=== PATIENT | female | born 1985 | race Caucasian/White ===

== ENCOUNTER 2018-07-24 17:57 | Emergency (ER) | payer BC ==
[2018-07-24 18:09] VITALS: BP 134/85; PULSE 101; RESP 20; TEMP 98.3
--- NOTE | 2018-07-24 19:36 | CT ---
EXAMINATION TYPE: CT brain wo con DATE OF EXAM: 07/24/2018 COMPARISON: None. HISTORY: headache and dizziness 4 days post head injury CT DLP: 1070.4 mGycm. Automated Exposure Control for Dose Reduction was Utilized. TECHNIQUE: CT scan of the head is performed without contrast. FINDINGS: There is no acute intracranial hemorrhage, mass effect, or midline shift identified. The ventricles and sulci are within normal limits in size. Daley-white matter differentiation is maintain ed. The globes are intact and the visualized sinuses are clear. The calvarium is intact. No suspiciou s opacification mastoid air cells. IMPRESSION: No acute intracranial hemorrhage, mass effect, or midline shift is seen.
--- NOTE | 2018-07-24 20:23 | ED ---
General Adult HPI - General Chief complaint: Head Injury Stated complaint: Head injury Time Seen by Provider: 07/24/18 18:12 Source: patient Mode of arrival: ambulatory Limitations: no limitations - History of Present Illness Initial comments: Patient is a 32-year-old female presenting to emergency Department with a headache. Patient states that a few days ago she was wrestling with her sister when they bumped heads. Patient states that the trauma occurred on the left lateral supraorbital region. Patient reports slight blurry vision, lightheadedn ess and mild dizziness at the time of incident. Currently the patient states the pain has not improved and is exacerbated with palpation. Patient states that after the incident she "felt weird" but denies any amnesia. Patient also reports that yesterday she was cleaning her ears when she noticed red contents on the Q-tip from the left ear. Patient denies any otalgia or difficulty hearing. Patient states that she has not taken any medication for his symptoms. Patient currently denies any blurry vision, lightheadedness, dizziness, numbness or tingling, nausea or vomiting ,muscle weakness. - Related Data Home Medications Medication Instructions Recorded Confirmed No Known Home Medications 07/24/18 07/24/18 Allergies Allergy/AdvReac Type Severity Reaction Status Date / Time No Known Allergies Allergy Verified 07/24/18 19:09 Review of Systems ROS Statement: Those systems with pertinent positive or pertinent negative responses have been documented in the HPI. ROS Other: All systems not noted in ROS Statement are negative. Past Medical History Past Medical History: No Reported History History of Any Multi-Drug Resistant Organisms: None Reported Past Surgical History: Appendectomy, Section, Tubal Ligation Past Psychological History: No Psychological Hx Reported Smoking Status: Current every day smoker Past Alcohol Use History: None Reported Past Drug Use History: Marijuana General Exam Limitations: no limitations General appearance: alert, in no apparent distress Head exam: Present: other Expanded Head exam: Present: contusion (Left lateral supraorbital region.). Absent: laceration, abrasion, raccoon eyes, flanagan's sign, general tenderness Eye exam: Present: normal appearance, PERRL, EOMI. Absent: scleral icterus, conjunctival injection Pupils: Present: normal accommodation ENT exam: Present: normal exam, TM's normal bilaterally (No hemotympanum) Neck exam: Present: normal inspection, full ROM. Absent: tenderness, lymphadenopathy Respiratory exam: Present: normal lung sounds bilaterally Cardiovascular Exam: Present: regular rate, normal rhythm, normal heart sounds Extremities exam: Present: normal inspection Neurological exam: Present: alert, oriented X3 Psychiatric exam: Present: normal affect, normal mood Skin exam: Present: warm, normal color Course Vital Signs 07/24/18 18:06 Temperature 98.3 F Pulse Rate 101 H Respiratory 20 Rate Blood Pressure 134/85 O2 Sat by Pulse 98 Oximetry Medical Decision Making - Medical Decision Making Patient is a 32-year-old female presenting to emergency Department with headac he. Based on physical examination unsuspecting contusion to her left lateral supraorbital region. CT was obtained and returned unremarkable. I suspect this patient had a mild concussion and she is experiencing progressive symptoms. Patient advised to alternate between ibuprofen and Tylenol for pain control. Patient advised to follow up with primary care. Patient advised to return to emergency department if symptoms worsen. Case discussed with physician. Disposition Clinical Impression: Head injury due to trauma Disposition: HOME SELF-CARE Condition: Stable Additional Instructions: Please take Tylenol or ibuprofen for pain control. Please follow with primary care. Please return to emergency department if symptoms worsen. Is patient prescribed a controlled substance at d/c from ED?: No Referrals: Rodrigo Solomon DO [Primary Care Provider] - 1-2 days Time of Disposition: 20:32
== END 2018-07-24 20:45 | disposition home or self-care (01) ==
LOC: EC 17:57
DX: S00.83XA Contusion of other part of head, initial encounter (principal); F17.200 Nicotine dependence, unspecified, uncomplicated; W50.0XXA Accidental hit or strike by another person, initial encounter; Y93.72 Activity, wrestling; Y92.89 Other specified places as the place of occurrence of the external cause
CPT/HCPCS: 70450; 99283

== ENCOUNTER 2020-01-30 12:12 | Emergency (ER) | payer BC ==
[2020-01-30 12:22] VITALS: RESP 18
[2020-01-30] MEDS ORDERED: KETOROLAC 15 MG/ML 1 ML VIAL IVP STA ×2 (12:40→14:44)
[2020-01-30] MEDS ORDERED: SODIUM CHLORIDE 0.9% 1,000 ML IV STA (12:40)
[2020-01-30] MEDS ORDERED: ACETAMINOPHEN TAB 500 MG TAB PO STA (12:41)
--- NOTE | 2020-01-30 13:00 | ED ---
General Adult HPI - General Chief complaint: Abdominal Pain Stated complaint: ABD pain Time Seen by Provider: 01/30/20 12:23 Source: patient, EMS, RN notes reviewed Mode of arrival: EMS Limitations: no limitations - History of Present Illness Initial comments: 34-year-old female with a past medical history of tubal ligation, appendectomy presents to the emergency room for a chief complaint of abdominal pain. Patient reports she woke up this morning with suprapubic discomfort. States that it gradually worsened and it radiates to the right back. Patient reports it does not seem to be getting better. She denies fevers. Denies dysuria, vaginal di scharge, cough congestion sore throat.. Denies nausea vomiting diarrhea.Patient has no other complaints at this time including shortness of breath, chest pain, nausea or vomiting, headache, or visual changes. - Related Data Previous Rx's Medication Instructions Recorded HYDROcodone/APAP 5-325MG [[place] 1 tab PO Q6HR PRN #10 tab 01/30/20 5-325] Ibuprofen [Motrin] 600 mg PO Q6HR PRN #20 tab 01/30/20 Ondansetron [Zofran ODT] 4 mg PO Q8HR PRN #15 tab 01/30/20 Tamsulosin [Flomax] 0.4 mg PO DAILY #14 cap 01/30/20 Allergies Allergy/AdvReac Type Severity Reaction Status Date / Time No Known Allergies Allergy Verified 01/30/20 14:41 Review of Systems ROS Statement: Those systems with pertinent positive or pertinent negative responses have been documented in the HPI. ROS Other: All systems not noted in ROS Statement are negative. Past Medical History Past Medical History: No Reported History History of Any Multi-Drug Resistant Organisms: None Reported Past Surgical History: Appendectomy, Section, Tubal Ligation Past Psychological History: No Psychological Hx Reported Past Alcohol Use History: None Reported Past Drug Use History: Marijuana General Exam Limitations: no limitations General appearance: alert, in no apparent distress Head exam: Present: atraumatic, normocephalic, normal inspection Eye exam: Present: normal appearance, PERRL, EOMI. Absent: scleral icterus, conjunctival injection, periorbital swelling ENT exam: Present: normal exam, mucous membranes moist Neck exam: Present: normal inspection, full ROM. Absent: tenderness, meningismus, lymphadenopathy Respiratory exam: Present: normal lung sounds bilaterally. Absent: respiratory distress, wheezes, rales, rhonchi, stridor Cardiovascular Exam: Present: regular rate, normal rhythm, normal heart sounds. Absent: systolic murmur, diastolic murmur, rubs, gallop, clicks GI/Abdominal exam: Present: soft, tenderness (Suprapubic tenderness noted), normal bowel sounds. Absent: distended, guarding, rebound, rigid External exam: Present: normal external exam, other (Malika CUMMINGS present on exam). Absent: erythema, swelling, lesions, lacerations, ecchymosis Speculum exam: Present: normal speculum exam. Absent: erythema, vaginal discharge, cervical discharge, vaginal bleeding, foreign body By manual exam: Present: normal by manual exam. Absent: cervical motion tendern ess, adnexal tenderness, adnexal mass, uterine enlargement, uterine tenderness Neurological exam: Present: alert Course Vital Signs 01/30/20 01/30/20 01/30/20 12:14 13:35 15:17 Temperature 100.0 F H 98.6 F Pulse Rate 61 52 L 61 Respiratory 18 18 18 Rate Blood Pressure 125/81 135/84 131/78 O2 Sat by Pulse 99 96 99 Oximetry Medical Decision Making - Medical Decision Making Vitals are stable. CBC CMP unremarkable. Urinalysis does show 10 red blood cells with 18 white blood cells. Negative nitrite.CT shows a distal right ureteral stone measuring 5.3 mm approximate 2 cm from the UVJ resulting in moderate right-sided hydronephrosis. Patient was given several pain medications. She is feeling much better at this time. Patient had a temperatur e of 100.0 however has not had any other fevers. This is not a true fever today. She has no dysuria or signs of urinary tract infection. Symptoms are consistent with stone. Urine will be cultured. She will follow-up with her doctor in one to 2 days. She'll return here for any worsening symptoms. - Lab Data Result diagrams: 01/30/20 12:52 01/30/20 12:52 Lab Results 01/30/20 01/30/20 01/30/20 Range/Units 12:52 12:52 12:52 WBC 12.9 H (3.8-10.6) k/uL RBC 4.21 (3.80-5.40) m/uL Hgb 14.0 (11.4-16.0) gm/dL Hct 39.1 (34.0-46.0) % MCV 92.8 (80.0-100.0) fL MCH 33.3 (25.0-35.0) pg MCHC 35.8 (31.0-37.0) g/dL RDW 13.0 (11.5-15.5) % Plt Count 312 (150-450) k/uL MPV 7.2 Neutrophils % 81 % Lymphocytes % 15 % Monocytes % 2 % Eosinophils % 1 % Basophils % 0 % Neutrophils # 10.5 H (1.3-7.7) k/uL Lymphocytes # 1.9 (1.0-4.8) k/uL Monocytes # 0.2 (0-1.0) k/uL Eosinophils # 0.2 (0-0.7) k/uL Basophils # 0.0 (0-0.2) k/uL Sodium (137-145) mmol/L Potassium (3.5-5.1) mmol/L Chloride (98-107) mmol/L Carbon Dioxide (22-30) mmol/L Anion Gap mmol/L BUN (7-17) mg/dL Creatinine (0.52-1.04) mg/dL Est GFR (CKD-EPI)AfAm (>60 ml/min/1.73 sqM) Est GFR (CKD-EPI)NonAf (>60 ml/min/1.73 sqM) Glucose (74-99) mg/dL Calcium (8.4-10.2) mg/dL Total Bilirubin (0.2-1.3) mg/dL AST (14-36) U/L ALT (4-34) U/L Alkaline Phosphatase (38-126) U/L Total Protein (6.3-8.2) g/dL Albumin (3.5-5.0) g/dL Amylase (30-110) U/L Lipase (23-300) U/L Urine Color Light [place] Urine Appearance Turbid H (Clear) Urine pH 5.5 (5.0-8.0) Ur Specific [place] 1.022 (1.001-1.035) Urine Protein 1+ H (Negative) Urine Glucose (UA) Negative (Negative) Urine Ketones Negative (Negative) Urine Blood Moderate H (Negative) Urine Nitrite Negative (Negative) Urine Bilirubin Negative (Negative) Urine Urobilinogen <2.0 (<2.0) mg/dL Ur Leukocyte Esterase Trace H (Negative) Urine RBC 10 H (0-5) /hpf Urine WBC 18 H (0-5) /hpf Ur Squamous Epith Cells 7 H (0-4) /hpf Amorphous Sediment Rare H (None) /hpf Urine Bacteria Rare H (None) /hpf Urine Mucus Many H (None) /hpf Urine HCG, Qual Not Detected (Not Detectd) Trichomonas Ag (Rapid) (Negative) 01/30/20 01/30/20 Range/Units 12:52 13:15 WBC (3.8-10.6) k/uL RBC (3.80-5.40) m/uL Hgb (11.4-16.0) gm/dL Hct (34.0-46.0) % MCV (80.0-100.0) fL MCH (25.0-35.0) pg MCHC (31.0-37.0) g/dL RDW (11.5-15.5) % Plt Count (150-450) k/uL MPV Neutrophils % % Lymphocytes % % Monocytes % % Eosinophils % % Basophils % % Neutrophils # (1.3-7.7) k/uL Lymphocytes # (1.0-4.8) k/uL Monocytes # (0-1.0) k/uL Eosinophils # (0-0.7) k/uL Basophils # (0-0.2) k/uL Sodium 139 (137-145) mmol/L Potassium 3.9 (3.5-5.1) mmol/L Chloride 109 H (98-107) mmol/L Carbon Dioxide 24 (22-30) mmol/L Anion Gap 6 mmol/L BUN 10 (7-17) mg/dL Creatinine 1.00 (0.52-1.04) mg/dL Est GFR (CKD-EPI)AfAm 86 (>60 ml/min/1.73 sqM) Est GFR (CKD-EPI)NonAf 75 (>60 ml/min/1.73 sqM) Glucose 113 H (74-99) mg/dL Calcium 9.2 (8.4-10.2) mg/dL Total Bilirubin 0.5 (0.2-1.3) mg/dL AST 25 (14-36) U/L ALT 26 (4-34) U/L Alkaline Phosphatase 62 (38-126) U/L Total Protein 6.8 (6.3-8.2) g/dL Albumin 4.0 (3.5-5.0) g/dL Amylase 44 (30-110) U/L Lipase 126 (23-300) U/L Urine Color Urine Appearance (Clear) Urine pH (5.0-8.0) Ur Specific [place] (1.001-1.035) Urine Protein (Negative) Urine Glucose (UA) (Negative) Urine Ketones (Negative) Urine Blood (Negative) Urine Nitrite (Negative) Urine Bilirubin (Negative) Urine Urobilinogen (<2.0) mg/dL Ur Leukocyte Esterase (Negative) Urine RBC (0-5) /hpf Urine WBC (0-5) /hpf Ur Squamous Epith Cells (0-4) /hpf Amorphous Sediment (None) /hpf Urine Bacteria (None) /hpf Urine Mucus (None) /hpf Urine HCG, Qual (Not Detectd) Trichomonas Ag (Rapid) Negative (Negative) Disposition Clinical Impression: Kidney stone Disposition: HOME SELF-CARE Condition: Good Instructions (If sedation given, give patient instructions): Kidney Stones (ED) Additional Instructions: Please take Motrin for pain. If pain is severe take [place]. Take Zofran as needed for nausea. Take Flomax daily. Follow up on urine culture results. Follow up with urology. Return here for any worsening symptoms. Prescriptions: Tamsulosin [Flomax] 0.4 mg PO DAILY #14 cap Ibuprofen [Motrin] 600 mg PO Q6HR PRN #20 tab PRN Reason: Pain HYDROcodone/APAP 5-325MG [[place] 5-325] 1 tab PO Q6HR PRN #10 tab PRN Reason: Pain Ondansetron [Zofran ODT] 4 mg PO Q8HR PRN #15 tab PRN Reason: Nausea Is patient prescribed a controlled substance at d/c from ED?: Yes When asked, does pt state using other controlled substances?: No If prescribed controlled substance>3 days was MAPS reviewed?: Prescribed <3 Days If opioid is for acute pain is fill amount 7 days or less?: Yes If Rx opioid, was Start Talking consent form obtained?: Yes Referrals: Rodrigo Solomon DO [Primary Care Provider] - 1-2 days Philip Holder MD [STAFF PHYSICIAN] - 1-2 days Time of Disposition: 16:16
[2020-01-30 13:08] LABS: Basophils % (A) 0 %; Eosinophils # (A) 0.2 k/uL (0-0.7); Eosinophils % (A) 1 %; HCT 39.1 % (34.0-46.0); Lymphocytes # (A) 1.9 k/uL (1.0-4.8); Lymphocytes % (A) 15 %; MCH 33.3 pg (25.0-35.0); MCHC 35.8 g/dL (31.0-37.0); MCV 92.8 fL (80.0-100.0); Mean Platelet Volume 7.2; Monocytes # (A) 0.2 k/uL (0-1.0); Monocytes % (A) 2 %; Neutrophils # (A) 10.5 k/uL (1.3-7.7); Neutrophils % (A) 81 %; Platelet Count 312 k/uL (150-450); RBC 4.21 m/uL (3.80-5.40); WBC 12.9 k/uL (3.8-10.6)
[2020-01-30] MEDS ORDERED: HYDROmorphone 0.5 MG/0.5 ML SYRINGE IVP STA (13:15)
[2020-01-30 13:23] LABS: Calcium 9.2 mg/dL (8.4-10.2); Potassium 3.9 mmol/L (3.5-5.1); Total Bilirubin 0.5 mg/dL (0.2-1.3); Total Protein 6.8 g/dL (6.3-8.2)
[2020-01-30 13:32] LABS: Amorphous Sediment,Urine Rare /hpf; Appearance,Urine Turbid (Clear); Bacteria,Urine Rare /hpf; Bilirubin,Urine Negative (Negative); Blood,Urine Moderate (Negative); Color,Urine Light Orange; Glucose,Urine (UA) Negative (Negative); Ketones,Urine Negative (Negative); Leukocyte Esterase,Urine Trace (Negative); Mucus,Urine Many /hpf; Nitrite,Urine Negative (Negative); PH, Urine 5.5 (5.0-8.0); Protein,Urine 1+ (Negative); RBC,Urine 10 /hpf (0-5); Specific Gravity,Urine 1.022 (1.001-1.035); Squamous Epithelial Cell,Urine 7 /hpf (0-4); Urobilinogen,Urine <2.0 mg/dL (<2.0); WBC,Urine 18 /hpf (0-5)
--- NOTE | 2020-01-30 14:07 | CT ---
EXAMINATION TYPE: CT abdomen pelvis wo con DATE OF EXAM: 01/30/2020 COMPARISON: None HISTORY: pelvic pain CT DLP: 943.7 mGycm Examination of the solid and hollow viscera is limited given the lack of contrast. FINDINGS: LUNG BASES: No evidence for nodule. No evidence for infiltrate. LIVER/GB: The gallbladder is unremarkable. Hepatic cysts noted. PANCREAS: No pancreatic mass identified. No inflammatory process seen. SPLEEN: No evidence for splenomegaly. No intrasplenic lesions seen. ADRENALS: No adrenal nodules identified. No evidence for thickening. KIDNEYS: Distal right ureteral calculus measuring 5.3 mm approximately 2 cm from the UVJ resulting in moderate right-sided hydroureteronephrosis. No additional calculi seen. Suspect a left parapelvic cy st. BOWEL: Appendix has a normal appearance. No evidence of bowel obstruction. No inflammatory process. Lymph nodes: No evidence for adenopathy greater than 1 cm. Abdominal aorta: Atheromatous changes seen. No evidence for aneurysm. Genital organs: No significant abnormality. Other: No significant abnormality. IMPRESSION: Distal right ureteral calculus measuring 5.3 mm approximately 2 cm from the UVJ resulting in moderate right-sided hydroureteronephrosis.
[2020-01-30] MEDS ORDERED: HYDROmorphone 1 MG/ML 1 ML SYRINGE IVP STA (14:44)
--- NOTE | 2020-01-30 15:03 | XR ---
KUB HISTORY: Stone, right-sided flank pain Correlation to CT scan same date Frontal KUB spelled on 2 images The right sided distal ureteral calculus is seen on plain film in the right hemipelvis measures appro ximately 5 mm. There is a mild spinal curvature. Bone mineralization is normal. Lung bases are clear. No bowel obstruction or pneumoperitoneum. IMPRESSION: Distal right ureteral calculus.
[2020-01-30 15:18] VITALS: TEMP 98.6
[2020-01-30 16:32] VITALS: BP 136/79; PULSE 65
== END 2020-01-30 16:32 | disposition home or self-care (01) ==
LOC: EC 12:12
DX: N13.2 Hydronephrosis with renal and ureteral calculous obstruction (principal); Z90.49 Acquired absence of other specified parts of digestive tract; Z98.51 Tubal ligation status
CPT/HCPCS: 36415; 80053; 82150; 83690; 85025; 81001; 81025; 87808; 87491; 87591; 87086; 74018; 74176; 99285; 96374; 96375; 96376 ×2; 96361 ×4; J1170 ×2; J1885